=== PATIENT | male | born 1940 | race Caucasian/White ===

== ENCOUNTER → 2018-01-24 | Outpatient (CLI) | payer MEDICARE ==
--- NOTE | 2018-01-24 17:37 | CT ---
EXAMINATION TYPE: CT abdomen pelvis wo con DATE OF EXAM: 01/24/2018 COMPARISON: NONE HISTORY: Constipation with abdominal distention CT DLP: 1190.7 mGycm Automated exposure control for dose reduction was used. TECHNIQUE: Helical acquisition of images was performed from the lung bases through the pelvis. FINDINGS: The lung bases are clear. There is no pleural effusion. Heart size is normal. Liver and spleen appear normal. Bile ducts are not dilated. Gallbladder appears normal. There is no s ign of a pancreatic mass. There is no adrenal mass. There is mild renal cortical thinning. There is no hydronephrosis. There is renal vascular calcification. Abdominal aorta is atheromatous. Ureters are not dilated. There is no retroperitoneal adenopathy. There is no ascites. Bladder distends smoothly. I see no intestinal wall thickening. There are no dilated loops. There is no sign of appendicitis. I see no bony destructive p rocess. There is no sign of free air. IMPRESSION: MILD RENAL ATROPHY. NO EVIDENCE OF RENAL MASS OR OBSTRUCTION. ATHEROSCLEROTIC VASCULAR DISEASE. NO SI GN OF ACUTE ABDOMEN AND PELVIS. THERE IS PROBABLY A 1.5 CM CYST ON THE UPPER POLE RIGHT KIDNEY.
== END | disposition home or self-care (01) ==
LOC: RADCTMAIN 14:18
PROVIDERS: ATTEND Family Medicine
DX: N26.1 Atrophy of kidney (terminal) (principal); I70.90 Unspecified atherosclerosis; K59.09 Other constipation
CPT/HCPCS: 36415; 74176; 82565; 84520

== ENCOUNTER → 2018-05-16 | Outpatient (CLI) | payer MEDICARE ==
[2018-05-16 11:09] LABS: HCT 34.8 % (39.0-53.0); HGB 11.9 gm/dL (13.0-17.5); MCH 30.1 pg (25.0-35.0); MCHC 34.2 g/dL (31.0-37.0); MCV 87.9 fL (80.0-100.0); Mean Platelet Volume 7.6; Platelet Count 112 k/uL (150-450); RBC 3.96 m/uL (4.30-5.90); RDW 13.3 % (11.5-15.5)
[2018-05-16 11:27] LABS: Potassium 4.5 mmol/L (3.5-5.1)
== END | disposition home or self-care (01) ==
LOC: LABPAT 10:36
PROVIDERS: ATTEND Internal Medicine Interventional Cardiology
DX: Z01.812 Encounter for preprocedural laboratory examination (principal); I10 Essential (primary) hypertension; R94.39 Abnormal result of other cardiovascular function study
CPT/HCPCS: 36415; 80051; 82565; 82947; 83735; 84520; 85027

== ENCOUNTER 2018-05-28 07:01 | Day surgery (SDC) | payer MEDICARE ==
[2018-05-23 13:35] VITALS: BMI 35.9
[~2018-05-28 07:01] MED LIST: ALPRAZolam 0.25 MG TAB PO PRN; ALPRAZolam 0.5 MG TAB PO PRN; ASPIRIN 325 MG TAB PO STA; ATORVASTATIN 80 MG TAB PO STA; NITROGLYCERIN SL TABS 0.4 MG TAB SUBLINGUAL PRN; SODIUM CHLORIDE 0.9% 1,000 ML in EMPTY BAG 1 BAG IV ONE
[2018-05-28 07:55] LABS: Potassium 4.2 mmol/L (3.5-5.1)
[2018-05-28] MEDS ORDERED: diphenhydrAMINE 50 MG/ML 1 ML VIAL ONE (10:24)
[2018-05-28] MEDS ORDERED: LIDOCAINE 1% INJ 10MG/ML (20 ML MDV) ONE (10:24)
[2018-05-28] MEDS ORDERED: MIDAZOLAM 2 MG/2 ML VIAL ONE (10:24)
[2018-05-28 10:33] VITALS: RESP 16; TEMP 97.8
[2018-05-28] MEDS ORDERED: VERAPAMIL 2.5 MG/ML 2 ML AMP ONE (10:39)
[2018-05-28] MEDS ORDERED: MIDAZOLAM 2 MG/2 ML VIAL IVP ONE (10:56)
[2018-05-28] MEDS ORDERED: diphenhydrAMINE 50 MG/ML 1 ML VIAL IVP ONE (10:56)
[2018-05-28] MEDS ORDERED: LIDOCAINE 1% INJ 10MG/ML (20 ML MDV) SQ ONE (10:58)
[2018-05-28] MEDS ORDERED: HEPARIN SODIUM 1,000 UN/ML (10ML VL) ONE (11:01)
[2018-05-28] MEDS ORDERED: HEPARIN SODIUM 1,000 UN/ML (10ML VL) IVPB ONE (11:02)
[2018-05-28] MEDS ORDERED: IOPAMIDOL-370 100ML BTL INJ ONE (11:15)
[2018-05-28] MEDS ORDERED: SODIUM CHLORIDE 0.9% 1,000 ML IV SCH (11:30)
[2018-05-28] MEDS ORDERED: RX INFO: IV CONTRAST WAS GIVEN 1 EACH MISC MISCELLANE PRN (11:30)
--- NOTE | 2018-05-28 12:15 | LTR ---
DATE OF SERVICE: 05/28/2018 RE: Johnson Davey Dear Ryan; Thank you for the opportunity to participate in the care of Mr. Davey. Please find enclosed my detailed cardiac cath report for your records. Fortunately, he has no obstructive CAD, but his creatinine is elevated and he does take a lot of nonsteroidal anti-inflammatory agents. I am asking him not to take any nonsteroidals and he will be seen by Dr. Fischer prior to discharge today. Thank you for your referral and please call for questions. With kindest regards. Sincerely yours, Adriana Barron MD [email or web address] / MEETN: [id number] /
--- NOTE | 2018-05-28 12:15 | CC ---
CARDIAC CATHETERIZATION REPORT DATE OF SERVICE: 05/28/2018 PROCEDURE: Left heart catheterization and coronary angiography. PERFORMED BY: Dr. Mitali Barron. ANESTHESIA: Moderate conscious sedation time was 23 minutes. Patient was administered Versed and Benadryl and his oxygen saturation, hemodynamics and EKG were monitored closely. CLINICAL INFORMATION: Mr. Johnson Davey is an 78-year-old gentleman with a history of hypertension and hypercholesterolemia who has been having symptoms of exertional chest pressure, shortness of breath and had a positive stress test. He was advised coronary angiography. His creatinine was elevated. He was adequately hydrated both orally and intravenously and brought in for the procedure and least amount of contrast was administered. PROCEDURE NOTE: Under local anesthesia and strict aseptic precautions, a 6-Syriac introducer was placed in the right radial artery. I used an Ultimate 1 catheter for selective coronary angiography of the left system. I used a standard right Aramis catheter for the right coronary artery and the same catheter was used to check LV pressures. LV gram was not performed. The sheath was taken out and TR band applied as per protocol with good hemostasis and saturation in the fingers of the right hand was 94%. Patient received 2000 units of heparin intravenously. Patient tolerated procedure well without complications. CARDIAC CATHETERIZATION FINDINGS: The left ventricular end-diastolic pressure was 12 mmHg and there was no gradient across the aortic valve. CORONARY ANGIOGRAPHY FINDINGS: RIGHT CORONARY ARTERY : Technically this is a dominant vessel that supplies a fair amount of myocardium. It is tortuous, has mild calcification, has minor irregularities, no significant disease, gives off an acute marginal in the midportion, distally bifurcates into PDA and PLV, both of which are rather small and have minor diffuse disease. Compared to the previous catheterization in 2004, there is no significant change. LEFT MAIN CORONARY ARTERY: Short patent disease-free vessel that immediately bifurcates into LAD and circumflex. There is mild calcification noted. LEFT ANTERIOR DESCENDING CORONARY ARTERY: This vessel gives off a very high diagonal that then subdivides into 2 branches, supplies a sizable amount of myocardium, has minor irregularities, no significant disease. The left anterior descending coronary artery is a good caliber vessel in the mid portion with a 35%-40% narrowing and the caliber decreases but it supplies a sizable amount of myocardium, curves over the apex to supply the inferoapical portion. It gives off septal and diagonal branches. No significant disease in the LAD or diagonal system. LEFT POSTERIOR CIRCUMFLEX CORONARY ARTERY: Technically a nondominant vessel that gives off a single obtuse marginal that runs laterally, supplies a fair amount of myocardium. No significant disease noted in the circumflex marginal which has minor irregularities. This is a nondominant circumflex. LEFT VENTRICULOGRAM: This was not performed. FINAL IMPRESSION: This patient has normal filling pressures, a right-dominant system, no significant obstructive disease. About a 35% stenosis in mid left anterior descending artery. Right coronary artery has minor irregularities, no significant disease. Filling pressures are normal. An LV-gram was not performed. The least amount of contrast was used. RECOMMENDATIONS: Continue with medical therapy with risk factor modification is advised and patient will be hydrated and he will also see phlebotomy tech prior to discharge. BRIA / IJN: [id number] /
[2018-05-28 17:08] VITALS: BP 145/72; PULSE 69
== END 2018-05-28 17:06 | disposition home or self-care (01) ==
LOC: CATHCVL 07:01
PROVIDERS: ATTEND Internal Medicine Interventional Cardiology
DX: J44.9 Chronic obstructive pulmonary disease, unspecified (principal); E78.00 Pure hypercholesterolemia, unspecified; I77.1 Stricture of artery; I25.110 Atherosclerotic heart disease of native coronary artery with unstable angina pectoris; I25.84 Coronary atherosclerosis due to calcified coronary lesion; I10 Essential (primary) hypertension; Z87.891 Personal history of nicotine dependence; E78.5 Hyperlipidemia, unspecified; Z79.899 Other long term (current) drug therapy
CPT/HCPCS: 93458; 80048; C1894; J2250; J1200; J2001; J1644; Q9967

== ENCOUNTER → 2018-05-30 | Outpatient (CLI) | payer MEDICARE ==
[2018-05-30 08:46] LABS: Calcium 8.9 mg/dL (8.4-10.2); Potassium 4.6 mmol/L (3.5-5.1)
--- NOTE | 2018-05-30 21:50 | CONS ---
CONSULTATION DATE OF CONSULT: 05/28/2018. REASON FOR CONSULT: Renal failure. HISTORY OF PRESENT ILLNESS: The patient is a 78-year-old white male with history of hypertension, coronary artery disease, dyslipidemia, who presented to the hospital for cardiac catheterization, which was done by Dr. Adriana Barron this morning. The patient was found to have mild coronary artery disease and was advised medical therapy. He did not have any intervention done. The patient's serum creatinine was 1.94 on 05/28/2018. Previous labs on 05/16/2018 showed a creatinine 1.5, and all the way back in 2014, serum creatinine was 1.4 and 1.3 mg/dL. The patient was on Aleve and Naprosyn at home. Currently, his blood pressure has not been low. He has been voiding well. He is maintained on IV fluids at 100 mL an hour. The patient denies any previous history of kidney diseases. PAST MEDICAL HISTORY: Dyslipidemia, hypertension. SOCIAL HISTORY: The patient is a former smoker. No history of drug abuse or alcohol use. MEDICATIONS: Medications at home prior to admission included Zocor, Lopressor, aspirin, albuterol. EXAMINATION: Currently patient is comfortable, awake. He is not in any acute distress. Blood pressure was 163/67, heart rate 68 per minute. Patient is afebrile. Examination of the heart S1, S2. Examination lungs bilateral breath sounds are heard. Abdomen is soft, nontender. Examination lower extremities shows no significant edema. FEATHER TRIMMER exam is grossly intact. LABORATORY DATA: Lab reveals sodium 141, potassium 4.2, chloride 108, BUN 39, serum creatinine 1.94, glucose 124. UA is not available. ASSESSMENT: 1. Acute kidney injury related to recent use of NSAIDs, currently status post cardiac catheterization. The patient is maintained on IV fluids. The NSAIDs have been discontinued appropriately. I have advised the patient to monitor his urine output and we will repeat labs in 1-2 days time as outpatient. The patient can be discharged from nephrology standpoint. 2. Chronic kidney disease and NKF stage III, most likely secondary to nephrosclerosis. Previous creatinine was 1.5 mg/dL on 05/16/2018, and we have a creatinine of 1.[address] in 2014 as well. We will check an ultrasound of the kidneys and urinalysis and patient will be seen for followup as outpatient. 3. Hypertension currently controlled. 4. Abnormal stress test status post cardiac catheterization with medically manageable disease with no intervention done at this time. PLAN: 1. Patient can be discharged from nephrology standpoint, we will obtain a repeat set of renal profile in 1-2 days time post discharge. 2. He is advised to continue to avoid the use of NSAIDs. 3. The patient will be seen in the office in about 1 week's time for followup. 4. Thank you for this consultation. We will continue to follow the patient with you. MMODL / IJN: [id number] /
== END | disposition home or self-care (01) ==
LOC: LABWHC1 07:58
PROVIDERS: ATTEND Internal Medicine Nephrology
DX: I25.110 Atherosclerotic heart disease of native coronary artery with unstable angina pectoris (principal); J44.9 Chronic obstructive pulmonary disease, unspecified
CPT/HCPCS: 36415; 80048

== ENCOUNTER → 2018-07-14 | Outpatient (CLI) | payer MEDICARE ==
--- NOTE | 2018-07-14 14:35 | US ---
EXAMINATION TYPE: US kidneys/renal and bladder DATE OF EXAM: 07/14/2018 COMPARISON: CT 01/24/2018 CLINICAL HISTORY: N18.3 CKD Stage 3. EXAM MEASUREMENTS: Right Kidney: 10.1 x 4.9 x 5.1 cm Left Kidney: 11.0 x 5.1 x 4.2 cm Right Kidney: No hydronephrosis. Cystic area visualized measuring 1.3 x 1.2 x 1.2 cm. Cortical thinni ng is present. Cortical medullary differentiation maintained. Left Kidney: No hydronephrosis. No cystic or solid mass visualized on this exam, cortical medullary d ifferentiation maintained. Bladder: wnl as visualized, not fully distended Bilateral Jets seen: Yes Anechoic focus midpole right kidney shows increased through transmission and imperceptible wall. IMPRESSION: Renal sizes as described. No hydronephrosis. Simple cyst midpole right kidney.
== END | disposition home or self-care (01) ==
LOC: RADUSWWP 08:39
PROVIDERS: ATTEND Internal Medicine Nephrology
DX: N28.1 Cyst of kidney, acquired (principal); N18.3 Chronic kidney disease, stage 3 (moderate)
CPT/HCPCS: 76770

== ENCOUNTER → 2018-08-08 | Outpatient (CLI) | payer MEDICARE ==
[2018-08-08 09:44] LABS: Basophils % (A) 0 %; Eosinophils # (A) 0.1 k/uL (0-0.7); Eosinophils % (A) 3 %; HCT 38.3 % (39.0-53.0); HGB 12.7 gm/dL (13.0-17.5); Lymphocytes # (A) 1.4 k/uL (1.0-4.8); Lymphocytes % (A) 29 %; MCH 29.3 pg (25.0-35.0); MCV 88.8 fL (80.0-100.0); Monocytes # (A) 0.3 k/uL (0-1.0); Monocytes % (A) 5 %; Neutrophils # (A) 3.1 k/uL (1.3-7.7); Neutrophils % (A) 62 %; Platelet Count 117 k/uL (150-450); RBC 4.31 m/uL (4.30-5.90); RDW 13.1 % (11.5-15.5)
[2018-08-08 10:19] LABS: Appearance,Urine Clear (Clear); Bilirubin,Urine Negative (Negative); Blood,Urine Negative (Negative); Color,Urine Yellow; Glucose,Urine (UA) Negative (Negative); Ketones,Urine Negative (Negative); Leukocyte Esterase,Urine Negative (Negative); Nitrite,Urine Negative (Negative); PH, Urine 5.5 (5.0-8.0); Protein,Urine Trace (Negative); Specific Gravity,Urine 1.014 (1.001-1.035); Urobilinogen,Urine <2.0 mg/dL (<2.0)
[2018-08-08 17:16] LABS: Iron Saturation 22.62 (15.00-50.00); Protein, Total 6.2 g/dL (6.2-8.2)
[2018-08-08 17:40] LABS: Albumin 4.3 g/dL (3.80-4.90); Anion Gap 10.5 mmol/L (4.00-12.00); Calcium 8.8 mg/dL (8.7-10.3); Carbon Dioxide 22.5 mmol/L (21.6-31.8); Phosphorus 3.4 mg/dL (2.4-5.1); Potassium 4.3 mmol/L (3.5-5.5); Uric Acid 7.7 mg/dL (3.7-8.7)
[2018-08-08 17:54] LABS: Parathyroid Hormone Intact 116.3 pg/mL (14.0-72.0); Vitamin D 25 Hydroxy 10.2 ng/mL (30.0-100.0)
[2018-08-08 18:30] LABS: Creatinine,Urine Random 166.6 mg/dL
[2018-08-08 19:28] LABS: Total Protein,Urine Random 28.5 mg/dL (0.0-13.5)
[2018-08-11 13:07] LABS: Albumin 3.74 g/dL (3.80-4.90); Gamma Globulin 0.61 g/dL (0.70-1.50)
== END | disposition home or self-care (01) ==
LOC: LABWHC1 08:40
PROVIDERS: ATTEND Internal Medicine Nephrology
DX: E55.9 Vitamin D deficiency, unspecified (principal); E21.3 Hyperparathyroidism, unspecified; D63.1 Anemia in chronic kidney disease; N18.3 Chronic kidney disease, stage 3 (moderate); R80.9 Proteinuria, unspecified; M10.9 Gout, unspecified; N39.0 Urinary tract infection, site not specified
CPT/HCPCS: 36415; 80048; 81003; 82040; 82306; 82570; 82728; 83540; 83550; 83735; 83883; 83970; 84100; 84156; 84165; 84550; 85025; 86335

== ENCOUNTER → 2019-08-03 | Outpatient (CLI) | payer MEDICARE ==
--- NOTE | 2019-08-03 09:25 | US ---
EXAMINATION TYPE: US kidneys/renal and bladder DATE OF EXAM: 08/03/2019 COMPARISON: NONE CLINICAL HISTORY: N18.3 chronic kidney disease, stage 3. CKD, stage 3 EXAM MEASUREMENTS: Right Kidney: 10.7 x 5.0 x 4.9 cm Left Kidney: 10.0 x 5.8 x 4.3 cm Right Kidney: cystic area = 1.3 x 1.3 x 1.4cm Left Kidney: no evidence of hydronephrosis Bladder: not fully distended Bilateral Jets seen: yes Bilateral cortical renal thinning is seen. This is mild in degree. There is no evidence for hydroneph rosis at this point in time. No nephrolithiasis is seen. No suspicious masses are identified. The urinary bladder is anechoic. Bilateral ureteral jets are seen. IMPRESSION: Sonographic sequela of medical renal disease. Benign-appearing right renal cyst. No hydro nephrosis.
== END | disposition home or self-care (01) ==
LOC: RADUSWWP 08:49
PROVIDERS: ATTEND Internal Medicine Nephrology
DX: N28.1 Cyst of kidney, acquired (principal); N28.9 Disorder of kidney and ureter, unspecified
CPT/HCPCS: 76770

== ENCOUNTER → 2021-08-04 | Day surgery (SDC) | payer MEDICARE ==
[2021-08-02 09:19] VITALS: BMI 35.9
[~2021-08-04] MED LIST changes: -ALPRAZolam 0.25 MG TAB PO PRN; -ALPRAZolam 0.5 MG TAB PO PRN; -ASPIRIN 325 MG TAB PO STA; -ATORVASTATIN 80 MG TAB PO STA; +LACTATED RINGERS 1,000 ML IV SCH; +LIDOCAINE 1% (10MG/ML) FOR IV START INTRADERMA PRN; +LIDOCAINE 1% INJ 10MG/ML (20 ML MDV) ONE; -NITROGLYCERIN SL TABS 0.4 MG TAB SUBLINGUAL PRN; +PROPOFOL 10 MG/ML 20 ML VIAL IV ONE; -SODIUM CHLORIDE 0.9% 1,000 ML in EMPTY BAG 1 BAG IV ONE
[2021-08-04 08:23] VITALS: TEMP 96.6
--- NOTE | 2021-08-04 09:15 | P.PCN ---
Date of Procedure: 08/04/21 Preoperative Diagnosis: Dysphagia Postoperative Diagnosis: Gastritis Duodenitis Procedure(s) Performed: EGD with biopsy Anesthesia: MARCOS Surgeon: Sari Chavira Pathology: other (Biopsies of esophagus, antrum, duodenum) Condition: stable Disposition: same day Indications for Procedure: 81-year-old male presented secondary to history of dysphagia. He states certain types of foods occasionally feel like they get stuck and take some time to pass through the distal esophagus. He states occasionally liquids also cause this issue. He states he has started taking omeprazole and has noticed this issue has decreased in severity. Operative Findings: Widely patent esophagus Gastritis Duodenitis Description of Procedure: The patient was brought to the endoscopy suite and placed in left lateral decubitus position and adequate sedation was achieved using conscious sedation. A bite block was placed and an endoscope was placed in the oropharynx and advanced under endoscopic visualization. The endoscope was advanced through the esophagus into the stomach, through the gastric antrum and into the pylorus. The third portion of the duodenum was visualized. The endoscope was then slowly withdrawn. The first portion the duodenum was noted to have inflammatory changes. Biopsies were taken. The antrum was noted to have inflammatory changes. Biopsies were taken. The gastric body distended normally and the gastric folds appeared normal and flattened with insufflation. A retroflexed view of the fundus and GE junction revealed no significant hiatal hernia. The distal esophagus appeared endoscopically normal and widely patent. No evidence of stenosis or stricture of the entire esophagus. Excess air was removed and the scope was withdrawn and the procedure was completed. The patient was then sent to postanesthesia care unit in stable condition.
[2021-08-04 09:28] VITALS: RESP 20
[2021-08-04 09:33] VITALS: BP 139/80; PULSE 80
== END | disposition home or self-care (01) ==
LOC: ORWHC2ENDO 08:03
PROVIDERS: ATTEND Surgery
DX: K29.70 Gastritis, unspecified, without bleeding (principal); K20.90 Esophagitis, unspecified without bleeding; K29.80 Duodenitis without bleeding; K31.9 Disease of stomach and duodenum, unspecified
CPT/HCPCS: 43239; 88305; J2001; J2704